=== PATIENT | female | born 1950 | race African-American/Black ===

== ENCOUNTER 2021-03-03 20:54 | Inpatient (IN) | payer OTHER, MEDICARE ==
[~2021-03-03] VITALS: Ht 188 cm; Wt 114.0 kg
[~2021-03-03 20:54] MED LIST: ALLEGRA ALLERG180 MG PO; ALLERGY SHOTS; ASPIRIN CHEWABL81 MG PO; ATROVENT HFA12.9 GM INH; COMBIVENT RESPIM4 GM INH; COZAAR100 MG PO; CYCLOBENZAPRINE10 MG PO; LASIX20 MG PO; OMEPRAZOLE40 MG PO; PERFOROMIS20 MCG/2 M INH; PULMICORT0.5 MG/2 M NEB; SINGULAIR10 MG PO; THEOPHYLLINE 3300 MG PO; VENTOLIN HFA IN18 GM INH; ZETIA10 MG PO
[2021-03-03 21:41] LABS: BASOPHIL 0.3 % (0-2); EOSINOPHIL 0 % (0-7); HCT 46.2 % (37.0-47.0); HGB 14.8 g/dl (12.5-16.0); LYMPHOCYTE 16.1 % (15-48); MCH 29.6 pg (25.0-31.0); MCV 92.4 fL (78.0-100.0); MONOCYTE 7.4 % (0-12); MPV 9.7 fL (6.0-9.5); NEUTROPHIL 75.9 % (41-80); NRBC 0; PLT 192 K/uL (150-400); RDW 13.6 % (11.5-14.0); WBC 10.1 K/uL (4.0-10.5)
[2021-03-03 21:56] LABS: BUN/CREAT RATIO (CALC) 24.1 RATIO; CREATININE 0.87 mg/dL (0.51-0.95); POTASSIUM 3.8 mmol/L (3.5-5.1)
[2021-03-03 21:58] LABS: LACTIC ACID 1.6 mmol/L (0.4-1.9)
[2021-03-03 22:12] LABS: CORONAVIRUS 2019 SARS-COV-2 NEGATIVE (NEGATIVE); INFLUENZA A NAA POSITIVE (NEGATIVE)
[2021-03-05 06:10] LABS: BASOPHIL 0.4 % (0-2); EOSINOPHIL 0 % (0-7); HCT 42.2 % (37.0-47.0); HGB 13.3 g/dl (12.5-16.0); LYMPHOCYTE 22.7 % (15-48); MCH 29.6 pg (25.0-31.0); MCHC 31.5 g/dL (32.0-36.0); MCV 93.8 fL (78.0-100.0); MONOCYTE 8.4 % (0-12); MPV 9.6 fL (6.0-9.5); NEUTROPHIL 68.1 % (41-80); NRBC 0; PLT 181 K/uL (150-400); RDW 13.5 % (11.5-14.0); WBC 7.7 K/uL (4.0-10.5)
[2021-03-05 06:34] LABS: BUN/CREAT RATIO (CALC) 32.1 RATIO; CREATININE 0.78 mg/dL (0.51-0.95); POTASSIUM 4.1 mmol/L (3.5-5.1)
[2021-03-06] MEDS ORDERED: MUCINEX 600MG600 MG PO (16:05)
[2021-03-06] MEDS ORDERED: TAMIFLU 75MG CA75 MG PO (16:05)
[2021-03-06] MEDS ORDERED: PREDNISONE 20MG20 MG PO (16:08)
--- NOTE | 2021-03-06 16:10 | NUR ---
PT RESIDES ALONE, CONTINUES TO WORK AND IS INDEPENDENT. SHE WILL REQUIRE HOME O2 AT 2 LITERS. PT. REQUESTS O2 FROM [facility]. FAXED INFORMATION TO [facility].
== END 2021-03-06 17:17 | disposition home or self-care (01) | DRG 193 ==
LOC: FER 20:54 → FMS 03-04 03:31
PROVIDERS: Emergency Medicine Emergency Medical Services; Nurse Practitioner; ADMIT Internal Medicine
DX: J10.1 Influenza due to other identified influenza virus with other respiratory manifestations (principal); J96.01 Acute respiratory failure with hypoxia; J44.1 Chronic obstructive pulmonary disease with (acute) exacerbation; N17.9 Acute kidney failure, unspecified; J44.0 Chronic obstructive pulmonary disease with (acute) lower respiratory infection; Z20.822 Contact with and (suspected) exposure to COVID-19; I12.9 Hypertensive chronic kidney disease with stage 1 through stage 4 chronic kidney disease, or unspecified chronic kidney disease; N18.2 Chronic kidney disease, stage 2 (mild); K21.9 Gastro-esophageal reflux disease without esophagitis; E78.5 Hyperlipidemia, unspecified; Z87.891 Personal history of nicotine dependence; Z90.49 Acquired absence of other specified parts of digestive tract; Z98.41 Cataract extraction status, right eye; Z98.42 Cataract extraction status, left eye; Z98.51 Tubal ligation status; Z98.890 Other specified postprocedural states
CPT/HCPCS: 36415; 36600; 71045; 71275; 80048; 82803; 83605; 83880; 84145; 84484; 85025; 85379; 87040; 93005; 94010; 94640; 94664; 97162; 97530-GP; J0696; J1100; J1650; J7512; Q9967; U0002

== ENCOUNTER 2021-05-26 19:51 | Emergency (ER) | payer OTHER, MEDICARE ==
[~2021-05-26 19:51] MED LIST changes: +MUCINEX 600MG600 MG PO; +PREDNISONE 20MG20 MG PO; +TAMIFLU 75MG CA75 MG PO
[2021-05-26 20:48] LABS: BASOPHIL 0.5 % (0-2); EOSINOPHIL 0 % (0-7); HGB 14.3 g/dl (12.5-16.0); LYMPHOCYTE 21.1 % (15-48); MCH 30.2 pg (25.0-31.0); MCHC 31.1 g/dL (32.0-36.0); MCV 97.3 fL (78.0-100.0); MONOCYTE 5.8 % (0-12); NEUTROPHIL 72.2 % (41-80); NRBC 0; PLT 192 K/uL (150-400); RBC 4.73 M/uL (4.20-5.40); RDW 13.6 % (11.5-14.0)
[2021-05-26 21:00] LABS: ALBUMIN 3.5 g/dL (3.4-5.0); BILIRUBIN - TOTAL 0.3 mg/dL (0.2-1.0); BUN/CREAT RATIO (CALC) 15.5 RATIO; CREATININE 1.55 mg/dL (0.51-0.95); GLOBULIN (CALCULATION) 3.5 g/dL; MAGNESIUM 1.8 mg/dL (1.8-2.4); PHOSPHORUS 3.8 mg/dL (2.6-4.7)
[2021-05-26 21:05] LABS: LACTIC ACID 1.5 mmol/L (0.4-1.9)
[2021-05-26 23:20] LABS: CORONAVIRUS 2019 SARS-COV-2 NEGATIVE (NEGATIVE); INFLUENZA A NAA NEGATIVE (NEGATIVE)
[2021-05-26 23:24] LABS: BILIRUBIN NEGATIVE (NEGATIVE); BLOOD NEGATIVE Ery/uL (NEGATIVE); CLARITY CLEAR (CLEAR); COLOR YELLOW (YELLOW); GLUCOSE (U) NORMAL (NORMAL); LEUKOCYTES NEGATIVE Leu/uL (NEGATIVE); NITRITE NEGATIVE (NEGATIVE); PROTEIN NEGATIVE (NEGATIVE); SPECIFIC GRAVITY 1.025 (1.001-1.030); UROBILINOGEN 0.2 mg/dL (0.2-1.0); pH 5.5 (5.0-9.0)
[2021-05-27] MEDS ORDERED: ONDANSETRON ODT4 MG PO (00:14)
== END 2021-05-27 00:27 | disposition home or self-care (01) ==
LOC: FER 19:51
PROVIDERS: Emergency Medicine
DX: R11.2 Nausea with vomiting, unspecified (principal); R10.10 Upper abdominal pain, unspecified; I10 Essential (primary) hypertension; J45.909 Unspecified asthma, uncomplicated; Z20.822 Contact with and (suspected) exposure to COVID-19
CPT/HCPCS: 36415; 71045; 80053; 81003; 83605; 83735; 83880; 84100; 85025; 93005; J2405; J7030; U0002

== ENCOUNTER 2021-08-29 17:04 | Emergency (ER) | payer OTHER, MEDICARE ==
[~2021-08-29 17:04] MED LIST changes: +ONDANSETRON ODT4 MG PO
[2021-08-29 19:26] LABS: BASOPHIL 0.3 % (0-2); EOSINOPHIL 0 % (0-7); HCT 45.3 % (37.0-47.0); HGB 14.2 g/dl (12.5-16.0); LYMPHOCYTE 21.9 % (15-48); MCH 29.6 pg (25.0-31.0); MCHC 31.3 g/dL (32.0-36.0); MCV 94.4 fL (78.0-100.0); MONOCYTE 7.4 % (0-12); NEUTROPHIL 69.9 % (41-80); NRBC 0; PLT 181 K/uL (150-400); RDW 12.8 % (11.5-14.0); WBC 6.6 K/uL (4.0-10.5)
[2021-08-29 19:45] LABS: ALBUMIN 3.1 g/dL (3.4-5.0); BILIRUBIN - TOTAL 0.2 mg/dL (0.2-1.0); BUN/CREAT RATIO (CALC) 17.2 RATIO; CREATININE 1.22 mg/dL (0.51-0.95); GLOBULIN (CALCULATION) 3.5 g/dL; MAGNESIUM 1.6 mg/dL (1.8-2.4); POTASSIUM 4.2 mmol/L (3.5-5.1); TOTAL PROTEIN 6.6 g/dL (6.4-8.2)
== END 2021-08-29 22:00 | disposition home or self-care (01) ==
LOC: FER 17:04
PROVIDERS: Internal Medicine
DX: R55 Syncope and collapse (principal); I12.9 Hypertensive chronic kidney disease with stage 1 through stage 4 chronic kidney disease, or unspecified chronic kidney disease; N18.30 Chronic kidney disease, stage 3 unspecified; Z87.891 Personal history of nicotine dependence
CPT/HCPCS: 36415; 70450; 80053; 83735; 83880; 84145; 84484; 85025; 93005; J3475; J7120

== ENCOUNTER 2021-09-11 18:56 | Emergency (ER) | payer OTHER, MEDICARE ==
[2021-09-11 19:26] LABS: BASOPHIL 0.7 % (0-2); EOSINOPHIL 0.3 % (0-7); HCT 43.8 % (37.0-47.0); LYMPHOCYTE 28.7 % (15-48); MCH 29.6 pg (25.0-31.0); MCV 92.6 fL (78.0-100.0); MONOCYTE 4.8 % (0-12); MPV 9.1 fL (6.0-9.5); NEUTROPHIL 64.9 % (41-80); NRBC 0; PLT 199 K/uL (150-400); RBC 4.73 M/uL (4.20-5.40); RDW 12.7 % (11.5-14.0); WBC 7.2 K/uL (4.0-10.5)
[2021-09-11 19:46] LABS: ALBUMIN 3.1 g/dL (3.4-5.0); BILIRUBIN - TOTAL 0.2 mg/dL (0.2-1.0); BUN/CREAT RATIO (CALC) 12.6 RATIO; CREATININE 1.35 mg/dL (0.51-0.95); GLOBULIN (CALCULATION) 3.8 g/dL; MAGNESIUM 1.8 mg/dL (1.8-2.4); POTASSIUM 3.9 mmol/L (3.5-5.1); TOTAL PROTEIN 6.9 g/dL (6.4-8.2)
[2021-09-11 20:03] LABS: CORONAVIRUS 2019 SARS-COV-2 NEGATIVE (NEGATIVE); INFLUENZA A NAA NEGATIVE (NEGATIVE)
== END 2021-09-11 21:23 | disposition home or self-care (01) ==
LOC: FER 18:56
PROVIDERS: Emergency Medicine
DX: E86.0 Dehydration (principal); I95.9 Hypotension, unspecified; R11.2 Nausea with vomiting, unspecified; I10 Essential (primary) hypertension; Z20.822 Contact with and (suspected) exposure to COVID-19; Z79.82 Long term (current) use of aspirin
CPT/HCPCS: 36415; 36600; 71045; 80053; 82803; 83735; 84484; 85025; 93005; 94640; 94664; J2930; J7030; U0002